=== PATIENT | male | born 1995 | race Caucasian/White ===

== ENCOUNTER 2017-04-09 01:59 | Emergency (ER) | payer SELFPAY ==
[2014-06-01 14:37] VITALS: BMI 27.4
[~2017-04-09 01:59] MED LIST: HYDROCODON-ACE1 EAC7 PO; VIBRAMYCIN50 MG PO
== END 2017-04-09 02:31 | disposition home or self-care (01) ==
LOC: D.ER 01:59
DX: L03.011 Cellulitis of right finger (principal); F17.200 Nicotine dependence, unspecified, uncomplicated

== ENCOUNTER 2020-12-19 15:11 | Emergency (ER) | payer MEDICAID ==
[~2020-12-19] VITALS: Ht 170.2 cm; Wt 75.0 kg
[2020-12-19 15:16] VITALS: BP 123/69; Ht 170.2 cm; Wt 75.0 kg
[2020-12-19] MEDS ORDERED: MOBIC7.5 MG PO (15:18)
[2020-12-19] MEDS ORDERED: CYCLOBENZAPRINE10 MG PO (15:18)
== END 2020-12-19 16:56 | disposition left against medical advice (07) ==
LOC: D.ER 15:11
DX: T15.91XA Foreign body on external eye, part unspecified, right eye, initial encounter (principal)